=== PATIENT | female | born 1995 ===

== ENCOUNTER 2021-09-27 10:47 | Outpatient (CLI) | payer BC, SELFPAY ==
[2021-09-27 11:28] LABS: Hematocrit 35.3 % (37.0-47.0); Mean Corpuscular HGB Conc 31.2 g/dl (32-36); Mean Corpuscular Volume 77.1 fl (80-100); Mean Platelet Volume 9.3 fl (7.4-10.4); Platelet Count Result 264 k/mm3 (150-375); Red Blood Count 4.58 M/mm3 (4.2-5.4); White Blood Count 7.6 K/mm3 (4.5-10.0)
[2021-09-27 11:35] LABS: Anion Gap 5 mmol/L (8-16); Blood Urea Nitrogen 8 mg/dL (7-17); Calcium 8.5 mg/dL (8.4-10.2); Carbon Dioxide 25 mmol/L (22-30); Chloride 104 mmol/L (98-107); Cholesterol 224 mg/dL (0-200); Estimated Glomerular Filt Rate > 60; Glucose 67 mg/dL (65-110); HDL Direct 70 mg/dL; Potassium 4.2 mmol/L (3.4-5.0); Sodium 134 mmol/L (137-145); Triglycerides 53 mg/dL (<150)
[2021-09-27 11:46] LABS: LDL Cholesterol Direct 82 mg/dL
[2021-09-27 12:06] LABS: Thyroid Stimulating Hormone 0.615 uIU/mL (0.465-4.680)
[2021-09-27 12:11] LABS: Vitamin D 25 Hydroxy 15.5 ng/mL
[2021-09-27 12:16] LABS: HIV 1/2 Ab P24 Ag Result Negative (Negative)
[2021-09-27 12:31] LABS: Hepatitis C Virus Antibody Negative (Negative)
== END 2021-09-27 10:48 | disposition home or self-care (01) ==
LOC: ANHLAB 10:54
DX: E78.5 Hyperlipidemia, unspecified (principal); E20.9 Hypoparathyroidism, unspecified; I10 Essential (primary) hypertension
CPT/HCPCS: 36415; 80048; 80061; 82306; 84443; 85027; 86703; 86803; G0432